=== PATIENT | female | born 1940 | race Caucasian/White ===

== ENCOUNTER 2016-12-29 16:07 | Inpatient (IN) | payer MEDICARE, MEDICAID ==
[~2016-12-29 16:07] MED LIST: ACETAMINOPHEN650 M4 PO; ADULT ASPIRIN81 MG PO; ALAVERT10 MG; ALBUTEROL17 GM INH; ALLEGRA60 MG; ARTIFICIAL TEAR15 M8 OP; ASPIRIN EC81 MG PO; ASPIRIN81 MG; CALCIUM 600 +1 EA10 PO; CALCIUM 600 +1 EACH PO; CALCIUM 600 W/V1 TAB; CERTAVITE PO; CLARITIN10 M2 PO; CLARITIN10 M6 PO; DOCUSATE SODIU100 MG; ERYTHROMYCIN3.5 GM LEFT EYE; FIRST AID ANTIB30 GM TP; FLUTICASONE PRO16 G1; HCTZ; K-DUR10 MEQ PO; LAMICTAL100 MG; LATUDA80 M1 PO; LATUDA80 MG PO; LEVAQUIN750 MG PO; LISINOPRIL10 MG; MULTIVITAMIN1 TAB; MULTIVITAMIN1 TAB PO; MULTIVITAMINS1 EAC7 PO; POTASSIUM CHLO10 ME2 PO; POTASSIUM CHLO10 MEQ; REMERON30 M1 PO; REMERON30 MG PO; RISPERDAL1 MG; RISPERDAL1 MG PO; SENNA PLUS TAB1 EAC1 PO; SENNA S TABLET1 TAB PO; SINGULAIR10 MG; SYNTHROID25 MC1 PO; SYNTHROID25 MCG PO; SYNTHROID50 MCG; VITAMIN C PO; VITAMIN C500 M3 PO; VITAMIN D31000 UNI2 PO; VITAMIN D31000 UNI4 PO; [UNRECOGNIZED DRUG - OTHER]; [UNRECOGNIZED DRUG - OTHER] PO; [UNRECOGNIZED DRUG - SUPPLY] TP
[2016-12-29] MEDS ORDERED: MIRTAZAPINE30 M2 PO (16:43)
[2016-12-29] MEDS ORDERED: CERTAVITE-ANTI1 EACH PO (16:43)
[2016-12-29] MEDS ORDERED: VITAMIN C500 M3 PO (16:43)
[2016-12-29] MEDS ORDERED: SYNTHROID25 MC1 PO (16:43)
[2016-12-29] MEDS ORDERED: LATUDA80 M1 PO (16:43)
[2016-12-29] MEDS ORDERED: CALCIUM 600 +1 EA12 PO (16:44)
[2016-12-29] MEDS ORDERED: POTASSIUM CHLO10 ME2 PO (16:44)
[2016-12-29] MEDS ORDERED: SENEXON-S TABL1 EAC1 PO (16:44)
[2016-12-29] MEDS ORDERED: VITAMIN D31000 UNI3 PO (16:44)
[2016-12-29] MEDS ORDERED: CLARITIN10 M6 PO (16:46)
[2016-12-29] MEDS ORDERED: ASPIRIN EC81 MG PO (16:46)
[2016-12-29] MEDS ORDERED: ACETAMINOPHEN650 M2 PO (16:46)
[2016-12-29] MEDS ORDERED: ARTIFICIAL TEAR15 M8 EACH EYE (16:59)
[2016-12-29 18:00] LABS: BASO % 0.4 % (0-2); EOS % 2.9 % (0-7); EOSINOPHIL ABSOLUTE COUNT 0.2 tho/cmm (0.0-0.7); HCT-HEMATOCRIT 40.5 % (34.0-49.0); HGB-HEMOGLOBIN 13.5 gm/dl (12.0-15.5); IMMATURE GRANULOCYTES ABSOLUTE 0.02 tho/cmm (0-0.03); IMMATURE GRANULOCYTES PERCENT 0.3 % (0-0.3); LYMPH % 32.2 % (20-45); LYMPH ABSOLUTE COUNT 2.2 tho/cmm (0.8-4.5); MCH (MEAN CORPUSCULAR HGB) 34.5 pg (28.0-32.0); MCHC MEAN CORPUSCULAR HGB CONC 33.3 % (32.0-36.0); MCV (MEAN CELL VOLUME) 103.6 fl (82.0-96.0); MEAN PLATELET VOLUME 10.8 cmc (9.4-12.4); MONO % 9.1 % (0-12); MONOCYTE ABSOLUTE COUNT 0.6 tho/cmm (0.0-1.2); NEUTROPHIL ABSOLUTE COUNT 3.7 tho/cmm (1.6-8.0); NEUTROPHIL-AUTOMATED 3.7 tho/cmm (1.6-8.0); NEUTROPHILS % 55.1 % (40-80); PLATELET COUNT 127 tho/cmm (150-450); RED BLOOD COUNT 3.91 mil/cmm (4.00-5.20); WHITE BLOOD COUNT 6.8 tho/cmm (4.0-10.0)
[2016-12-29 18:20] LABS: ALB/GLOB RATIO 0.7 (0.8-2.0); ALBUMIN 2.4 g/dl (3.5-5.0); ALT/SGPT 81 U/L (12-78); ANION GAP 12 mmol/L (0-20); AST/SGOT 128 U/L (10-40); BILIRUBIN,TOTAL 1.6 mg/dl (0-1.5); BLOOD UREA NITROGEN 25 mg/dl (6-24); CARBON DIOXIDE-VENOUS 24 mmol/L (22-32); CHLORIDE 113 mmol/l (96-110); CREATININE 1.16 mg/dl (0.50-1.10); GLUCOSE 86 mg/dL (70-110); POTASSIUM 4.7 mmol/L (3.7-5.1); SODIUM 144 mmol/L (135-145); eGFR VALUE FOR BLACK 52 mL/Min
[2016-12-29 18:23] LABS: ALKALINE PHOSPHATASE 463 U/L (33-138)
[2016-12-29 18:24] LABS: TSH-THYROID STIMULATING HORM. 2.19 uIU/ml (0.40-3.80)
[2016-12-30 06:11] LABS: BASO % 0.6 % (0-2); EOS % 5.1 % (0-7); EOSINOPHIL ABSOLUTE COUNT 0.3 tho/cmm (0.0-0.7); HCT-HEMATOCRIT 37.6 % (34.0-49.0); HGB-HEMOGLOBIN 12.4 gm/dl (12.0-15.5); IMMATURE GRANULOCYTES ABSOLUTE 0.01 tho/cmm (0-0.03); IMMATURE GRANULOCYTES PERCENT 0.2 % (0-0.3); LYMPH % 41.4 % (20-45); LYMPH ABSOLUTE COUNT 2.2 tho/cmm (0.8-4.5); MCH (MEAN CORPUSCULAR HGB) 34.1 pg (28.0-32.0); MCV (MEAN CELL VOLUME) 103.3 fl (82.0-96.0); MONO % 12.2 % (0-12); MONOCYTE ABSOLUTE COUNT 0.7 tho/cmm (0.0-1.2); NEUTROPHIL ABSOLUTE COUNT 2.2 tho/cmm (1.6-8.0); NEUTROPHIL-AUTOMATED 2.2 tho/cmm (1.6-8.0); NEUTROPHILS % 40.5 % (40-80); PLATELET COUNT 94 tho/cmm (150-450); RED BLOOD COUNT 3.64 mil/cmm (4.00-5.20); RED CELL DISTRIBUTION WIDTH 16.1 % (12.4-16.4); WHITE BLOOD COUNT 5.3 tho/cmm (4.0-10.0)
[2016-12-30 06:30] LABS: ANION GAP 14 mmol/L (0-20); BLOOD UREA NITROGEN 24 mg/dl (6-24); CALCIUM 8.7 mg/dl (8.5-10.5); CARBON DIOXIDE-VENOUS 24 mmol/L (22-32); CHLORIDE 115 mmol/l (96-110); CREATININE 1.21 mg/dl (0.50-1.10); GLUCOSE 81 mg/dL (70-110); SODIUM 148 mmol/L (135-145); eGFR VALUE FOR BLACK 50 mL/Min
[2016-12-30 06:33] LABS: POTASSIUM 4.5 mmol/L (3.7-5.1)
[2016-12-30 07:10] LABS: FOLATE (FOLIC ACID) 30.7 ng/ml (3.20-20.00)
[2016-12-31 05:58] LABS: BASO % 0.5 % (0-2); EOS % 6.5 % (0-7); EOSINOPHIL ABSOLUTE COUNT 0.3 tho/cmm (0.0-0.7); HCT-HEMATOCRIT 35.5 % (34.0-49.0); HGB-HEMOGLOBIN 11.7 gm/dl (12.0-15.5); LYMPH % 40.9 % (20-45); LYMPH ABSOLUTE COUNT 1.7 tho/cmm (0.8-4.5); MCV (MEAN CELL VOLUME) 103.2 fl (82.0-96.0); MEAN PLATELET VOLUME 11.4 cmc (9.4-12.4); MONO % 8.2 % (0-12); MONOCYTE ABSOLUTE COUNT 0.3 tho/cmm (0.0-1.2); NEUTROPHIL ABSOLUTE COUNT 1.8 tho/cmm (1.6-8.0); NEUTROPHIL-AUTOMATED 1.8 tho/cmm (1.6-8.0); NEUTROPHILS % 43.9 % (40-80); PLATELET COUNT 94 tho/cmm (150-450); RED BLOOD COUNT 3.44 mil/cmm (4.00-5.20); RED CELL DISTRIBUTION WIDTH 16.2 % (12.4-16.4)
[2016-12-31 06:25] LABS: ALB/GLOB RATIO 0.7 (0.8-2.0); ALBUMIN 2.1 g/dl (3.5-5.0); ALKALINE PHOSPHATASE 363 U/L (33-138); ALT/SGPT 67 U/L (12-78); ANION GAP 13 mmol/L (0-20); AST/SGOT 103 U/L (10-40); BILIRUBIN,TOTAL 1.6 mg/dl (0-1.5); BLOOD UREA NITROGEN 25 mg/dl (6-24); CALCIUM 8.3 mg/dl (8.5-10.5); CARBON DIOXIDE-VENOUS 22 mmol/L (22-32); CHLORIDE 113 mmol/l (96-110); CREATININE 1.18 mg/dl (0.50-1.10); GLUCOSE 76 mg/dL (70-110); POTASSIUM 3.9 mmol/L (3.7-5.1); SODIUM 144 mmol/L (135-145); eGFR VALUE FOR BLACK 51 mL/Min
[2016-12-31 16:20] LABS: BODY FLUID APPEARANCE HAZY (CLEAR); BODY FLUID COLOR YELLOW (COLORLESS); BODY FLUID RBC COUNT 1000 cmm (0); BODY FLUID VOLUME 1100 ml; BODY FLUID WBC COUNT 109 cmm
[2016-12-31 16:33] LABS: BODY FLUID LYMPHOCYTES 10 %; BODY FLUID MACROPHAGES 69 %; BODY FLUID MESOTHELIAL CELLS 21 %
[2016-12-31 16:34] LABS: BODY FLUID TYPE ASCITIC FLUID
[2016-12-31 20:49] LABS: INR 1.2 INR (0.9-1.1); PROTHROMBIN TIME 13.8 SECONDS (9.0-13.6)
[2016-12-31 20:59] LABS: ALB/GLOB RATIO 1.3 (0.8-2.0); BILIRUBIN,DIRECT 0.9 mg/dl (0.0-0.3); BILIRUBIN,INDIRECT 0.7 mg/dL (0.0-1.0); BILIRUBIN,TOTAL 1.6 mg/dl (0-1.5)
--- NOTE | 2016-12-31 21:34 | NUR ---
VN ROUNDING-TRIED ROUNDING ON PATIENT AT 2119 BUT SHE WAS NOT ABLE TO HEAR ME HER TV WAS ON AND I COULD NOT CONTROL THE TV TO LOWER VOLUME OR SHUT OFF.
[2017-01-01 08:20] LABS: FLUID ALBUMIN <0.6 g/dl
[2017-01-01 10:14] LABS: BASO % 0.2 % (0-2); EOS % 2.6 % (0-7); EOSINOPHIL ABSOLUTE COUNT 0.1 tho/cmm (0.0-0.7); HCT-HEMATOCRIT 33.7 % (34.0-49.0); HGB-HEMOGLOBIN 11.3 gm/dl (12.0-15.5); LYMPH % 36.1 % (20-45); LYMPH ABSOLUTE COUNT 1.5 tho/cmm (0.8-4.5); MCH (MEAN CORPUSCULAR HGB) 34.5 pg (28.0-32.0); MCHC MEAN CORPUSCULAR HGB CONC 33.5 % (32.0-36.0); MCV (MEAN CELL VOLUME) 102.7 fl (82.0-96.0); MEAN PLATELET VOLUME 11.4 cmc (9.4-12.4); MONO % 9.8 % (0-12); MONOCYTE ABSOLUTE COUNT 0.4 tho/cmm (0.0-1.2); NEUTROPHIL ABSOLUTE COUNT 2.1 tho/cmm (1.6-8.0); NEUTROPHIL-AUTOMATED 2.1 tho/cmm (1.6-8.0); NEUTROPHILS % 51.3 % (40-80); PLATELET COUNT 74 tho/cmm (150-450); RED BLOOD COUNT 3.28 mil/cmm (4.00-5.20); RED CELL DISTRIBUTION WIDTH 15.8 % (12.4-16.4); WHITE BLOOD COUNT 4.2 tho/cmm (4.0-10.0)
[2017-01-01 10:27] LABS: ALBUMIN 2.7 g/dl (3.5-5.0); ANION GAP 12 mmol/L (0-20); BLOOD UREA NITROGEN 25 mg/dl (6-24); CALCIUM 8.8 mg/dl (8.5-10.5); CARBON DIOXIDE-VENOUS 26 mmol/L (22-32); CHLORIDE 113 mmol/l (96-110); CREATININE 1.14 mg/dl (0.50-1.10); GLUCOSE 77 mg/dL (70-110); SODIUM 147 mmol/L (135-145); eGFR VALUE FOR BLACK 53 mL/Min
[2017-01-01 10:29] LABS: POTASSIUM 3.9 mmol/L (3.7-5.1)
[2017-01-02 04:46] LABS: BASO % 0.6 % (0-2); EOS % 6.3 % (0-7); EOSINOPHIL ABSOLUTE COUNT 0.3 tho/cmm (0.0-0.7); HCT-HEMATOCRIT 36.4 % (34.0-49.0); HGB-HEMOGLOBIN 11.8 gm/dl (12.0-15.5); IMMATURE GRANULOCYTES ABSOLUTE 0.01 tho/cmm (0-0.03); IMMATURE GRANULOCYTES PERCENT 0.2 % (0-0.3); LYMPH % 38.9 % (20-45); LYMPH ABSOLUTE COUNT 1.8 tho/cmm (0.8-4.5); MCHC MEAN CORPUSCULAR HGB CONC 32.4 % (32.0-36.0); MCV (MEAN CELL VOLUME) 104.9 fl (82.0-96.0); MEAN PLATELET VOLUME 11.9 cmc (9.4-12.4); MONO % 8.4 % (0-12); MONOCYTE ABSOLUTE COUNT 0.4 tho/cmm (0.0-1.2); NEUTROPHIL ABSOLUTE COUNT 2.1 tho/cmm (1.6-8.0); NEUTROPHIL-AUTOMATED 2.1 tho/cmm (1.6-8.0); NEUTROPHILS % 45.6 % (40-80); PLATELET COUNT 81 tho/cmm (150-450); RED BLOOD COUNT 3.47 mil/cmm (4.00-5.20); WHITE BLOOD COUNT 4.6 tho/cmm (4.0-10.0)
[2017-01-02 05:15] LABS: ANION GAP 8 mmol/L (0-20); BLOOD UREA NITROGEN 25 mg/dl (6-24); CALCIUM 8.7 mg/dl (8.5-10.5); CARBON DIOXIDE-VENOUS 27 mmol/L (22-32); CHLORIDE 115 mmol/l (96-110); CREATININE 1.16 mg/dl (0.50-1.10); GLUCOSE 84 mg/dL (70-110); SODIUM 146 mmol/L (135-145); eGFR VALUE FOR BLACK 52 mL/Min
[2017-01-02 05:16] LABS: POTASSIUM 4.3 mmol/L (3.7-5.1)
[2017-01-02 06:41] LABS: WBC MORPHOLOGY VARIANT LYMPHS
== END 2017-01-02 15:30 | DRG 432 ==
LOC: 5WD 16:07
PROVIDERS: Family Medicine; Specialist; ADMIT Family Medicine
PROC: 0DJ08ZZ Inspection of Upper Intestinal Tract, Via Natural or Artificial Opening Endoscopic (ICD-10-PCS; 2016-12-29)
PROC: 05HC33Z Insertion of Infusion Device into Left Basilic Vein, Percutaneous Approach (ICD-10-PCS; 2016-12-30)
PROC: 0W9G3ZX Drainage of Peritoneal Cavity, Percutaneous Approach, Diagnostic (ICD-10-PCS; principal; 2016-12-31)
DX: K74.69 Other cirrhosis of liver (principal); I50.33 Acute on chronic diastolic (congestive) heart failure; N17.9 Acute kidney failure, unspecified; R18.8 Other ascites; D69.6 Thrombocytopenia, unspecified; I27.2 Other secondary pulmonary hypertension; K76.6 Portal hypertension; D64.9 Anemia, unspecified; F31.9 Bipolar disorder, unspecified; M19.90 Unspecified osteoarthritis, unspecified site; E03.9 Hypothyroidism, unspecified; Z96.651 Presence of right artificial knee joint; R19.7 Diarrhea, unspecified; F10.21 Alcohol dependence, in remission; D50.9 Iron deficiency anemia, unspecified; K44.9 Diaphragmatic hernia without obstruction or gangrene; I34.0 Nonrheumatic mitral (valve) insufficiency; E88.09 Other disorders of plasma-protein metabolism, not elsewhere classified; K31.89 Other diseases of stomach and duodenum; Z79.82 Long term (current) use of aspirin; Z88.5 Allergy status to narcotic agent; Z87.891 Personal history of nicotine dependence; Z23 Encounter for immunization
CPT/HCPCS: A9577; C1751; G0009; J1650; J1940; J7030; P9047; Q9967